=== PATIENT | male | born 1985 ===

== ENCOUNTER 2019-02-05 12:41 | Emergency (ER) | payer SELFPAY ==
--- NOTE | 2019-02-05 13:41 | RAD ---
Portable frontal chest radiograph: 02/05/2019 COMPARISON: None HISTORY: Chest pain FINDINGS: Lungs are clear. Heart and mediastinal contours appear within normal limits. IMPRESSION: No acute findings.
[2019-02-05 13:42] LABS: #Basophils 0.1 thou/uL (0.0-0.2); #Eosinphils 0.1 thou/uL (0.0-0.7); #Lymphocytes 1.7 thou/uL (1.20-3.40); #Monocytes 0.4 thou/uL (0.11-0.59); #Neutrophils 2.1 thou/uL (1.40-6.50); %Basophils 1.5 % (0.0-1.0); %Eosinophils 2.2 % (0.0-10.0); %Lymphocytes 38.6 % (21.0-51.0); %Monocytes 9.9 % (0.0-10.0); %Neutrophils 47.9 % (42.0-75.0); Hemoglobin 15.6 g/dL (14.0-18.0); Mean Corpuscular HGB CONC 32.9 g/dL (32.0-36.0); Mean Corpuscular Hemoglobin 30.3 pg (27.0-31.0); Mean Corpuscular Volume 91.9 fL (78.0-98.0); Mean Platelet Volume 7.4 fL (7.4-10.4); Platelet Count 252 thou/uL (130-400); RBC Distribution Width 12.8 % (11.5-14.5); Red Blood Cell (RBC) Count 5.16 mill/uL (4.70-6.10); White Blood Cell (WBC) Count 4.4 thou/uL (4.8-10.8)
[2019-02-05 14:07] LABS: ALT (SGPT) 19 U/L (8-55); AST (SGOT) 18 U/L (5-34); Albumin 4.5 g/dL (3.5-5.0); Alkaline Phosphatase 97 U/L (40-110); Anion Gap 11 mmol/L (10-20); BUN (Urea Nitrogen) 7 mg/dL (8.9-20.6); Bilirubin, Total 0.4 mg/dL (0.2-1.2); Calc. Creatinine Clearance 0 mL/min (70-130); Calcium 9.7 mg/dL (7.8-10.44); Carbon Dioxide 30 mmol/L (22-29); Chloride 104 mmol/L (98-107); Estimated GFR-MDRD 66; Globulin 2.9 g/dL (2.4-3.5); Glucose 88 mg/dL (70-105); Lipase 15 U/L (8-78); Protein, Total 7.4 g/dL (6.0-8.3); Sodium 141 mmol/L (136-145)
[2019-02-05] MEDS ORDERED: Amlodipine 5 MG TAB ONE (15:17)
[2019-02-05] MEDS ORDERED: Amlodipine 10 MG TAB PO SCH (15:30)
[2019-02-05 17:56] LABS: Troponin I 0.015 ng/mL (< 0.028)
== END 2019-02-05 18:15 | disposition home or self-care (01) ==
LOC: ERS 12:41
DX: R07.89 Other chest pain (principal); I10 Essential (primary) hypertension
CPT/HCPCS: 36415; 71045; 80053; 83690; 84484; 85025; 93005